=== PATIENT | female | born 1975 | race African-American/Black ===

== ENCOUNTER 2017-06-15 12:03 | Emergency (ER) | payer MEDICAID ==
[~2017-06-15] VITALS: Ht 160 cm; Wt 68.0 kg
[~2017-06-15 12:03] MED LIST: AMOXICILLIN500 MG ORAL; ATARAX25 MG ORAL; HYDROCORTISONE25 GM TP; IBUPROFEN600 MG ORAL; NKM; PREDNISONE50 MG ORAL
[2017-06-15 12:16] VITALS: BP 108/69
[2017-06-15] MEDS ORDERED: Bacitracin Oint UD TOPIC ONE ×2 (12:54→13:00)
--- NOTE | 2017-06-15 12:56 | Emergency Room Report ---
History of Present Illness General Chief Complaint: Wound Recheck/Suture Removal Source: Patient Present Illness HPI 42-year-old female presents to the emergency department for packing removal and wound recheck. Patient states she had incision and drainage performed to a left axillary abscess 5 days ago. Patient states she's been taking antibiotics and reports that she continues to have some drainage from the incision area. Patient reports that she continues to have pain however erythema an swelling has improved. Patient denies fevers or chills. Allergies: Coded Allergies: No Known Allergies (Unverified , 02/07/13) Patient History Past Medical History: see triage record Past Surgical History: none Pertinent Family History: none Last Menstrual Period: 06/13/2017 Now: No Immunizations: UTD Reviewed Nursing Documentation: PMH: Agreed, PSxH: Agreed Nursing Documentation-PMH Past Medical History: No Stated History Review of Systems All Other Systems: negative except mentioned in HPI Physical Exam Vital Signs Date Time Temp Pulse Resp B/P (MAP) Pulse Ox O2 Delivery O2 Flow Rate FiO2 06/15/17 12:16 98.2 72 16 108/69 99 Room Air 98.2 Sp02 EP Interpretation: reviewed, normal General Appearance: no apparent distress, alert, GCS 15, non-toxic Head: normocephalic, atraumatic ENT: hearing grossly normal, normal voice Neck: full range of motion Respiratory: lungs clear, normal breath sounds, speaking full sentences Cardiovascular #1: regular rate, rhythm Musculoskeletal: back normal, gait/station normal, normal range of motion, non- tender Neurologic: alert, oriented x3, responsive, motor strength/tone normal, sensory intact, speech normal, grossly normal Psychiatric: judgement/insight normal Skin: no rash, warm/dry, well hydrated, other - previously incised 1cm left axillar abscess with wound packing in place and some purulent drainage noted. scant erythema of the incision site. Lymphatic: no adenopathy Medical Decision Making PA Attestation Dr. Cruz is my supervising Physician whom patient management has been discussed with. Diagnostic Impression: Primary Impression: Abscess packing removal ER Course 42-year-old female presents to the emergency department for packing removal and wound recheck. Patient states she had incision and drainage performed to a left axillary abscess 5 days ago. Patient states she's been taking antibiotics and reports that she continues to have some drainage from the incision area. Patient reports that she continues to have pain however erythema an swelling has improved. Patient denies fevers or chills. Ddx considered but are not limited to cellulitis, abscess, cystic acne, necrotizing fasciitis, insect bite. Vital signs: are WNL, pt. is afebrile H&PE are most consistent with healing previously incised abscess. ORDERS: none required at this time, the diagnosis is clinical ED INTERVENTIONS: -wound packing removed. -Sterile dressing applied. d/w pt. to continue taking po abx and to look for signs of infection . DISCHARGE: At this time pt. is stable for d/c to home. Will provide printed patient care instructions, and any necessary prescriptions. Care plan and follow up instructions have been discussed with the patient prior to discharge. Last Vital Signs Date Time Temp Pulse Resp B/P (MAP) Pulse Ox O2 Delivery O2 Flow Rate FiO2 06/15/17 12:16 98.2 72 16 108/69 99 Room Air 98.2 Disposition: HOME, SELF-CARE Condition: Stable Scripts Mupirocin* (MUPIROCIN*) 22 Gm Oint...g. 1 APPLIC TOPIC BID, #22 GM Prov: Loren Altamirano 06/15/17 Patient Instructions: Wound Check Additional Instructions: Take medications as directed. Follow up with a Primary Care Provider in 3-5 days, even if your symptoms have resolved. --Please review list of primary care clinics, if you do not already have a primary care provider Return sooner to ED if new symptoms occur, or current symptoms become worse. - Please note that this Emergency Department Report was dictated using [employer] decorator technology software, occasionally this can lead to erroneous entry secondary to interpretation by the dictation equipment. Loren Altamirano Jun 15, 2017 12:56
[2017-06-15] MEDS ORDERED: MUPIROCIN22 GM TOPIC (12:57)
[2017-06-15 13:26] VITALS: BP 104/65
== END 2017-06-15 13:33 | disposition home or self-care (01) ==
LOC: EMR 13:09
DX: L02.412 Cutaneous abscess of left axilla (principal); Z48.01 Encounter for change or removal of surgical wound dressing
CPT/HCPCS: 99283